=== PATIENT | male | born 1945 | race Caucasian/White ===

== ENCOUNTER 2018-09-27 19:30 | Outpatient (CLI) | payer MEDICARE | END 2018-09-27 19:31 | disposition home or self-care (01) | LOC: SLEEPLAB 19:30 | PROVIDERS: ATTEND Family Medicine | DX: G47.33 Obstructive sleep apnea (adult) (pediatric) (principal); I10 Essential (primary) hypertension; E11.9 Type 2 diabetes mellitus without complications | CPT/HCPCS: 95810 ==

== ENCOUNTER 2021-03-26 13:19 | Outpatient (CLI) | payer MEDICARE ==
[2021-03-27 17:41] LABS: SARS-CoV-2 PCR by NAA Not Detected (NotDetected)
== END 2021-03-26 13:20 | disposition home or self-care (01) ==
LOC: LABBT 13:19
PROVIDERS: ATTEND Urology
DX: Z01.818 Encounter for other preprocedural examination (principal); Z20.822 Contact with and (suspected) exposure to COVID-19
CPT/HCPCS: 93005; U0003; U0005; 93010

== ENCOUNTER 2021-03-30 06:47 | Day surgery (SDC) | payer MEDICARE ==
[2021-03-29 11:23] VITALS: BMI 27.8
[2021-03-30] MEDS ORDERED: Levofloxacin 500 mg/D5W 100 ml Premix Bag ONE (07:59)
[2021-03-30] MEDS ORDERED: Iothalamate Meglumine 60% 50 ML VIAL FS ONE (08:58)
[2021-03-30] MEDS ORDERED: Fentanyl 100 MCG/2 ML VIAL ONE (09:02)
[2021-03-30] MEDS ORDERED: Ondansetron PF 4 MG/2 ML Vial ONE (09:06)
[2021-03-30] MEDS ORDERED: PROPOFOL 200 MG/20 ML VIAL ONE (09:06)
[2021-03-30] MEDS ORDERED: ePHEDrine 50 MG/ML VIAL ONE (09:06)
[2021-03-30] MEDS ORDERED: Dexamethasone 20 MG/5 ML VIAL ONE (09:06)
[2021-03-30] MEDS ORDERED: Lidocaine 1% PF 5 ML VIAL ONE (09:06)
[2021-03-30] MEDS ORDERED: Oxybutynin 5 MG TAB ONE (10:01)
[2021-03-30] MEDS ORDERED: Ketorolac Tromethamine 30 MG/ML VIAL ONE (10:01)
[2021-03-30] MEDS ORDERED: Phenazopyridine HCl 100 MG TAB ONE (10:01)
== END 2021-03-30 11:50 | disposition home or self-care (01) ==
LOC: SDC 06:47
PROVIDERS: ATTEND Urology
PROC: 0T768DZ Dilation of Right Ureter with Intraluminal Device, Via Natural or Artificial Opening Endoscopic (ICD-10-PCS; principal; 2021-03-30)
DX: N13.2 Hydronephrosis with renal and ureteral calculous obstruction (principal); D29.1 Benign neoplasm of prostate; I10 Essential (primary) hypertension; G47.30 Sleep apnea, unspecified; Z85.46 Personal history of malignant neoplasm of prostate; Z79.899 Other long term (current) drug therapy; Z88.5 Allergy status to narcotic agent; Z88.6 Allergy status to analgesic agent; Z88.8 Allergy status to other drugs, medicaments and biological substances
CPT/HCPCS: 52332; 74420; Q9961; C2617; J1100; J1885; J1956; J2405; J2704; J3010; J3490

== ENCOUNTER 2021-04-02 16:25 | Emergency (ER) | payer MEDICARE ==
[2021-04-02] MEDS ORDERED: Morphine 2 MG/ML VIAL ONE (20:22)
== END 2021-04-02 20:49 | disposition home or self-care (01) ==
LOC: ERS 16:25
DX: N43.3 Hydrocele, unspecified (principal); I10 Essential (primary) hypertension; Z85.46 Personal history of malignant neoplasm of prostate; Z79.899 Other long term (current) drug therapy
CPT/HCPCS: 76870; 93976; J2270; 96372

== ENCOUNTER 2021-04-15 11:15 | Outpatient (CLI) | payer MEDICARE ==
[2021-04-15 13:02] LABS: Hemoglobin 15.2 g/dL (13.5-17.5); Mean Corpuscular HGB CONC 32.3 g/dL (32.0-36.0); Mean Corpuscular Hemoglobin 30.6 pg (27.0-33.0); Mean Corpuscular Volume 94.6 fl (81.2-95.1); Mean Platelet Volume 11.3 fl (7.4-10.4); Platelet Count 144 10x3/uL (150-450); RBC Distribution Width 12.7 % (11.5-14.5); Red Blood Cell (RBC) Count 4.97 10x6/uL (4.32-5.72); White Blood Cell (WBC) Count 9.6 10x3/uL (3.5-10.5)
[2021-04-15 13:15] LABS: Bilirubin Neg (Negative); Blood, Urine 250 (Negative); Clarity Cloudy (Clear); Glucose, Urine (Dipstick) Normal (Negative); Ketone, Urine Negative (Negative); Leukocyte 500 (Negative); Nitrite Negative (Negative); Protein, Urine (Dipstick) 500 mg/dl (Neg-Trace); Urobilinogen Normal mg/dL (Less than 2)
[2021-04-15 13:16] LABS: Anion Gap 16 mmol/L (10-20); BUN (Urea Nitrogen) 22 mg/dL (8.4-25.7); Calc. Creatinine Clearance 0 mL/min (70-130); Calcium 9.6 mg/dL (7.8-10.44); Carbon Dioxide 22 mmol/L (23-31); Chloride 106 mmol/L (98-107); Glucose 124 mg/dL (83-110); Sodium 140 mmol/L (136-145)
[2021-04-15 13:57] LABS: Bacteria/HPF 1+ HPF (None Seen); RBC/HPF Greater than 50 HPF (0-3); Squamous Epithelial 0-3 HPF (0-3); WBC/HPF 21-50 HPF (0-3)
[2021-04-16 01:05] LABS: SARS-CoV-2 PCR by NAA Not Detected (NotDetected)
== END 2021-04-15 11:16 | disposition home or self-care (01) ==
LOC: LABBT 11:15
PROVIDERS: ATTEND Urology
DX: Z01.812 Encounter for preprocedural laboratory examination (principal); N20.2 Calculus of kidney with calculus of ureter; Z20.822 Contact with and (suspected) exposure to COVID-19
CPT/HCPCS: 80048; 81001; 85027; 87086; U0003; U0005

== ENCOUNTER 2021-04-20 07:53 | Day surgery (SDC) | payer MEDICARE ==
[2021-04-19 15:24] VITALS: BMI 27.3
[2021-04-20] MEDS ORDERED: Levofloxacin 500 mg/D5W 100 ml Premix Bag ONE (08:05)
[2021-04-20] MEDS ORDERED: Iothalamate Meglumine 60% 50 ML VIAL FS ONE (09:48)
[2021-04-20] MEDS ORDERED: PROPOFOL 200 MG/20 ML VIAL ONE (09:48)
[2021-04-20] MEDS ORDERED: Dexamethasone 20 MG/5 ML VIAL ONE (09:48)
[2021-04-20] MEDS ORDERED: Lidocaine 1% PF 5 ML VIAL ONE (09:48)
[2021-04-20] MEDS ORDERED: Ondansetron PF 4 MG/2 ML Vial ONE (09:48)
[2021-04-20] MEDS ORDERED: Phenazopyridine HCl 100 MG TAB ONE (10:37)
[2021-04-20] MEDS ORDERED: Oxybutynin 5 MG TAB ONE (10:37)
[2021-04-20] MEDS ORDERED: Ketorolac Tromethamine 30 MG/ML VIAL ONE (10:37)
== END 2021-04-20 12:50 | disposition home or self-care (01) ==
LOC: SDC 07:53
PROVIDERS: ATTEND Urology
PROC: 0TC38ZZ Extirpation of Matter from Right Kidney Pelvis, Via Natural or Artificial Opening Endoscopic (ICD-10-PCS; principal; 2021-04-20)
PROC: 0T768DZ Dilation of Right Ureter with Intraluminal Device, Via Natural or Artificial Opening Endoscopic (ICD-10-PCS; 2021-04-20)
DX: N20.0 Calculus of kidney (principal); Z85.46 Personal history of malignant neoplasm of prostate; Z79.899 Other long term (current) drug therapy; Z88.5 Allergy status to narcotic agent; Z88.6 Allergy status to analgesic agent; Z88.8 Allergy status to other drugs, medicaments and biological substances
CPT/HCPCS: 52356; 74420; 82365; Q9961; 88300; C2617; J1100; J1885; J1956; J2405; J2704

== ENCOUNTER 2021-05-11 10:45 | Outpatient (CLI) | payer MEDICARE | END 2021-05-11 10:46 | disposition home or self-care (01) | LOC: BICULT 10:45 | PROVIDERS: ATTEND Urology | DX: N20.1 Calculus of ureter (principal); N40.0 Benign prostatic hyperplasia without lower urinary tract symptoms | CPT/HCPCS: 76770 ==